=== PATIENT | female | born 1935 | race Caucasian/White ===

== ENCOUNTER 2019-12-31 05:58 | Day surgery (SDC) | payer MEDICARE ==
[~2019-12-31] VITALS: Ht 158.8 cm; Wt 47.9 kg
[2019-12-31] MEDS ORDERED: BUPIVACAINE/PF 0.5% ONE (06:27)
[2019-12-31] MEDS ORDERED: LIDOCAINE 1%, 20ML ONE (06:28)
[2019-12-31 06:32] VITALS: BP 160/81
[2019-12-31] MEDS ORDERED: FENTANYL PF 100 MCG/2ML ONE (06:38)
[2019-12-31] MEDS ORDERED: LINA290C PO (06:42)
[2019-12-31] MEDS ORDERED: METH2.5T PO (06:42)
[2019-12-31] MEDS ORDERED: METOPROLOL PO (06:42)
[2019-12-31] MEDS ORDERED: PROPOFOL 10 MG/ML, 20ML ONE (06:50)
[2019-12-31] MEDS ORDERED: ONDANSETRON 2MG/ML, 2ML ONE (06:50)
[2019-12-31] MEDS ORDERED: DEXAMETHASONE 4 MG/ML, 1ML ONE (06:50)
[2019-12-31] MEDS ORDERED: CEFAZOLIN 1,000 MG ONE (06:50)
[2019-12-31] MEDS ORDERED: LACTATED RINGERS 1,000 ML IV SCH (06:51)
[2019-12-31] MEDS ORDERED: MEPERIDINE/PF 25MG/0.5ML IVPush PRN (07:00)
[2019-12-31] MEDS ORDERED: hydrALAzine 20 MG/ML, 1ML IV PRN (07:00)
[2019-12-31] MEDS ORDERED: ONDANSETRON 2MG/ML, 2ML IVPush PRN (07:00)
[2019-12-31] MEDS ORDERED: LABETALOL 5MG/ML, 20ML IV PRN (07:00)
[2019-12-31] MEDS ORDERED: OXYcodone 5 MG/5 ML ORAL.SOL UDC PO PRN (07:00)
[2019-12-31] MEDS ORDERED: ACETAMINOPHEN 500 MG TABLET PO ONE (07:00)
[2019-12-31] MEDS ORDERED: PROMETHAZINE 25 MG/ML, 1ML IVPush PRN (07:00)
[2019-12-31] MEDS ORDERED: HYDROmorphone 1 MG/ML, 1ML INJ IVPush PRN (07:00)
[2019-12-31] MEDS ORDERED: FENTANYL PF 100 MCG/2ML IV PRN (07:00)
[2019-12-31] MEDS ORDERED: CHLORHEXIDINE 15 ML UDC MM ONE (07:00)
[2019-12-31] MEDS ORDERED: EPHEDRINE 50 MG/ML, 1ML IVPush PRN (07:00)
[2019-12-31] MEDS ORDERED: KETOROLAC 30 MG/1 ML ONE (07:00)
[2019-12-31] MEDS ORDERED: EPHEDRINE 50 MG/ML, 1ML ONE (07:31)
== END 2019-12-31 09:50 | disposition home or self-care (01) ==
LOC: OUT 05:58
PROVIDERS: ATTEND Orthopaedic Surgery
DX: M67.02 Short Achilles tendon (acquired), left ankle (principal); M21.372 Foot drop, left foot; I10 Essential (primary) hypertension; M06.9 Rheumatoid arthritis, unspecified; Z88.2 Allergy status to sulfonamides; Z88.1 Allergy status to other antibiotic agents; Z88.5 Allergy status to narcotic agent; Z88.8 Allergy status to other drugs, medicaments and biological substances; Z79.899 Other long term (current) drug therapy; Z98.890 Other specified postprocedural states; Z20.828 Contact with and (suspected) exposure to other viral communicable diseases
CPT/HCPCS: 27685; 27686; 87635; 93005; J0690; J1100; J1885; J2405; J2704; J3010